=== PATIENT | female | born 1980 | race Caucasian/White ===

== ENCOUNTER 2019-11-17 15:53 | Emergency (ER) | payer OTHER ==
[~2019-11-17] VITALS: Ht 154.9 cm; Wt 57.2 kg
[2019-11-17 16:21] VITALS: Ht 154.9 cm; Wt 57.2 kg
[2019-11-17 19:47] VITALS: BP 136/86
== END 2019-11-17 19:47 | disposition home or self-care (01) ==
LOC: ED 15:53
DX: M25.511 Pain in right shoulder (principal)
CPT/HCPCS: J1100; J1885